=== PATIENT | male | born 1980 | race Caucasian/White ===

== ENCOUNTER → 2022-04-01 | Outpatient (CLI) | payer OTHER | LOC: KOH-I 10:45 | DX: R10.11 Right upper quadrant pain (principal); F11.20 Opioid dependence, uncomplicated; G56.00 Carpal tunnel syndrome, unspecified upper limb; M25.511 Pain in right shoulder; S16.1XXA Strain of muscle, fascia and tendon at neck level, initial encounter; R73.9 Hyperglycemia, unspecified; G47.30 Sleep apnea, unspecified; M54.2 Cervicalgia; I10 Essential (primary) hypertension; R40.0 Somnolence; M54.50 Low back pain, unspecified; K76.0 Fatty (change of) liver, not elsewhere classified | CPT/HCPCS: 76705 ==